=== PATIENT | female | born 1935 | race Caucasian/White ===

== ENCOUNTER 2018-09-03 02:48 | Observation (INO) | payer MEDICARE, BC ==
[~2018-09-03] VITALS: Ht 160 cm; Wt 46.8 kg
[2018-09-03 03:19] LABS: BASOPHILS 0.4 % (0-2); HEMATOCRIT 39.4 % (36.0-48.0); HEMOGLOBIN 12.9 g/dL (12-16); IMMATURE GRANULOCYTES 0.2 % (0-5); LYMPHOCYTES 35.7 % (15-50); MCH 31.9 pg (26.0-34.0); MCHC 32.7 g/dL (31.0-37.0); MCV 97.5 fL (80.0-100.0); MEAN PLATELET VOLUME 10.7 fL (7.4-10.4); MONOCYTES 10.2 % (2-11); NEUTROPHILS 50.5 % (40-80); PLATELET COUNT 166 10x3/uL (130-400); RBC 4.04 10x6/uL (4.00-5.40); RDW 13.2 % (11.5-14.5)
[2018-09-03 03:25] LABS: INR 1.05 (0.85-1.17); PROTIME 13.2 SECONDS (11.6-15.0)
[2018-09-03 03:32] LABS: ALBUMIN 3.8 g/dL (3.4-5.0); ALKALINE PHOSPHATASE 87 U/L (46-116); ALT (SGPT) 17 U/L (10-68); BILIRUBIN - TOTAL 0.68 mg/dL (0.2-1.3); CALC OSMOLALITY 274 mosm/kg (275-300); CALCIUM 8.8 mg/dL (8.5-10.1); CHLORIDE - SERUM 98 mmol/L (98-107); CREATININE - SERUM 0.7 mg/dL (0.6-1.3); GLUCOSE 105 mg/dL (74-106); POTASSIUM - SERUM 3.5 mmol/L (3.5-5.1); PROTEIN - SERUM 7.1 g/dL (6.4-8.2); SODIUM 137 mmol/L (136-145); UREA NITROGEN 14 mg/dL (7-18); eGFR NON AFRICAN AMERICAN 84 mL/min (90-120)
[2018-09-03 06:29] VITALS: BP 122/72; Ht 160 cm; Wt 46.8 kg
[2018-09-03 08:38] VITALS: BP 180/79
[2018-09-03] MEDS ORDERED: ZOCOR40 MG PO (09:43)
[2018-09-03] MEDS ORDERED: PROBIOTIC BLEN1 EACH PO (09:43)
[2018-09-03] MEDS ORDERED: SYNTHROID75 MCG PO (09:45)
[2018-09-03] MEDS ORDERED: CRANBERRY PO (09:45)
[2018-09-03] MEDS ORDERED: PLAVIX75 MG PO (09:46)
[2018-09-03] MEDS ORDERED: ZYRTEC10 MG PO (09:46)
[2018-09-03] MEDS ORDERED: BISOPROLOL-HCT1 EAC1 (09:48)
[2018-09-03 10:39] LABS: BASOPHILS 0.1 % (0-2); EOSINOPHILS 0.5 % (0-7); HEMATOCRIT 38.6 % (36.0-48.0); HEMOGLOBIN 12.6 g/dL (12-16); IMMATURE GRANULOCYTES 0.1 % (0-5); LYMPHOCYTES 13.1 % (15-50); MCH 31.7 pg (26.0-34.0); MCHC 32.6 g/dL (31.0-37.0); MCV 97.2 fL (80.0-100.0); MEAN PLATELET VOLUME 10.5 fL (7.4-10.4); MONOCYTES 6.7 % (2-11); NEUTROPHILS 79.5 % (40-80); PLATELET COUNT 183 10x3/uL (130-400); RBC 3.97 10x6/uL (4.00-5.40); RDW 13.2 % (11.5-14.5)
[2018-09-03 10:52] LABS: ANION GAP 14.2 mmol/L (8-16); CALCIUM 8.7 mg/dL (8.5-10.1); CARBON DIOXIDE 28.4 mmol/L (21.0-32.0); POTASSIUM - SERUM 3.6 mmol/L (3.5-5.1)
[2018-09-03 10:55] LABS: CREATININE - SERUM 0.9 mg/dL (0.6-1.3)
[2018-09-03 13:04] VITALS: BP 127/55
--- NOTE | 2018-09-03 15:47 | MORECARE ---
CASE MANAGEMENT DISCHARGE SUMMARY PATIENT: JAMES SPENCER UNIT: [id number] ADM DATE: 09/03/18 AGE: 83 : 34 SEX: F ROOM/BED: D.2229 AUTHOR: KAREN BENTLEY PHYSICIAN: REFERRING PHYSICIAN: CYRUS FERREIRA MD DATE OF SERVICE: 09/03/18 Discharge Plan Patient Name: JAMES SPENCER Facility: [facility]:[place] : 1935 Planned Disposition: Home or Self Care Anticipated Discharge Date: Discharge Date: Expected LOS: Initial Reviewer: [email or web address] Initial Review Date: 09/03/2018 Generated: 09/03/18 4:47 pm Patient Name: JAMES SPENCER Page 40883 at 1547 All edits/amendments must be made on the electronic document DICTATION DATE: 09/03/18 154 MANAGER TERMINAL: SAVANNAH 09/03/18 1547 RPT#: [id number] DC DATE: STATUS: ADM IN [facility] [address] [place] [address] END OF REPORT
--- NOTE | 2018-09-03 15:54 | MORECARE ---
CASE MANAGEMENT DISCHARGE SUMMARY PATIENT: JAMES SPENCER UNIT: [id number] ADM DATE: 09/03/18 AGE: 83 : 34 SEX: F ROOM/BED: D.2229 AUTHOR: KAREN BENTLEY PHYSICIAN: REFERRING PHYSICIAN: CYRUS FERREIRA MD DATE OF SERVICE: 09/03/18 Discharge Plan Patient Name: JAMES SPENCER Facility: [facility]:[place] : 1935 Planned Disposition: Home or Self Care Anticipated Discharge Date: Discharge Date: Expected LOS: Initial Reviewer: [email or web address] Initial Review Date: 09/03/2018 Generated: 09/03/18 4:54 pm Comments DCP- Discharge Planning Updated by [email or web address]: Ashly Avila on 09/03/18 2:[address] Patient Name: JAMES SPENCER Admission Status: ER Accout number: [id number] Admission Date: 09-03-2018 : 1935 Admission Diagnosis: Attending: CYRUS FERREIRA Current LOS: 1 Anticipated DC Date: Planned Disposition: Home or Self Care Primary Insurance: MEDICARE A & B Discharge Planning Comments: CM met with patient to complete initial dc planning assessment. CM educated patient on the CM role and verbal consent given by patient to complete assessment. Patient lives at home where she states she is independent with her care. Her son Rene states that she does everything for her self, but she has vascular dementia. She has a cane, but does not use any other DME. She does have a life alert. Her son lives 3 blocks away and is there multiple times a day checking on her. His is also a RN. At discharge patient plans to return home and feels this is a safe discharge. Her son and I talked about assisted living, but the patient is not hearing at this time. CM discussed availability of home health, rehab services, and medical equipment. Patient denied known discharge needs at this time. CM will continue to follow and will assist as needed with dc plans/needs. Senior Network Engineer: Ashly Avila DCPIA - Discharge Planning Initial Assessment Updated by [email or web address]: Ashly Avila on 09/03/18 3:48 pm * Is the patient Alert and Oriented? Yes * How many steps to enter\exit or inside your home? * PCP [facility] * [facility] * Preadmission Environment Home Alone * ADLs Independent * Equipment Cane * Other Equipment Life alert * List name and contact numbers for known caregivers / representatives who currently or will assist patient after discharge: Rene (son) [phone] * Verbal permission to speak to the caregivers and representatives has been obtained from the patient. Yes * Community resources currently utilized None * Additional services required to return to the preadmission environment? No * Can the patient safely return to the preadmission environment? Yes * Has this patient been hospitalized within the prior 30 days at any hospital? No Last DP export: 09/03/18 2:47 p Patient Name: JAMES SPENCER Page [id number] at 1554 All edits/amendments must be made on the electronic document DICTATION DATE: 09/03/181553 ULTRASOUND MANAGER: SAVANNAH 09/03/181553 RPT#: [id number] DC DATE: STATUS: ADM IN [facility] [address] [place] [address] END OF REPORT
[2018-09-03 16:22] LABS: APPEARANCE CLEAR (CLEAR); COLOR YELLOW (YELLOW); NITRITE NEGATIVE (NEGATIVE); PROTEIN NEGATIVE (NEGATIVE)
[2018-09-03 16:24] LABS: BILIRUBIN NEGATIVE (NEGATIVE); GLUCOSE NEGATIVE (NEGATIVE); KETONE NEGATIVE (NEGATIVE); UROBILINOGEN NORMAL (NORMAL)
--- NOTE | 2018-09-05 16:08 | MORECARE ---
CASE MANAGEMENT DISCHARGE SUMMARY PATIENT: JAMES SPENCER UNIT: [id number] ADM DATE: 09/03/18 AGE: 83 : 34 SEX: F ROOM/BED: D.2229 AUTHOR: KAREN BENTLEY PHYSICIAN: REFERRING PHYSICIAN: CYRUS FERREIRA MD DATE OF SERVICE: 09/05/18 Discharge Plan Patient Name: JAMES SPENECR Facility: [facility]:[place] : 1935 Planned Disposition: Home or Self Care Anticipated Discharge Date: Discharge Date: 09/03/2018 Expected LOS: 0 Initial Reviewer: [email or web address] Initial Review Date: 09/03/2018 Generated: 09/05/18 5:08 pm Comments DCP- Discharge Planning Updated by [email or web address]: Ashly Avila on 09/03/18 2:[address] Patient Name: JAMES SPENCER Admission Status: ER Accout number: [id number] Admission Date: 09-03-2018 : 1935 Admission Diagnosis: Attending: CYRUS FERREIRA Current LOS: 1 Anticipated DC Date: Planned Disposition: Home or Self Care Primary Insurance: MEDICARE A & B Discharge Planning Comments: CM met with patient to complete initial dc planning assessment. CM educated patient on the CM role and verbal consent given by patient to complete assessment. Patient lives at home where she states she is independent with her care. Her son Rene states that she does everything for her self, but she has vascular dementia. She has a cane, but does not use any other DME. She does have a life alert. Her son lives 3 blocks away and is there multiple times a day checking on her. His is also a RN. At discharge patient plans to return home and feels this is a safe discharge. Her son and I talked about assisted living, but the patient is not hearing at this time. CM discussed availability of home health, rehab services, and medical equipment. Patient denied known discharge needs at this time. CM will continue to follow and will assist as needed with dc plans/needs. Truck And Transport Mechanic: Ashly Avila DCPIA - Discharge Planning Initial Assessment Updated by [email or web address]: Ahsly Avila on 09/03/18 3:48 pm * Is the patient Alert and Oriented? Yes * How many steps to enter\exit or inside your home? * PCP Amairani Norton * Pharmacy [facility] * Preadmission Environment Home Alone * ADLs Independent * Equipment Cane * Other Equipment Life alert * List name and contact numbers for known caregivers / representatives who currently or will assist patient after discharge: Rene (son) [phone] * Verbal permission to speak to the caregivers and representatives has been obtained from the patient. Yes * Community resources currently utilized None * Additional services required to return to the preadmission environment? No * Can the patient safely return to the preadmission environment? Yes * Has this patient been hospitalized within the prior 30 days at any hospital? No Last DP export: 09/03/18 2:54 p Patient Name: JAMES SPENCER Page 44202 at 1608 All edits/amendments must be made on the electronic document DICTATION DATE: 09/05/181606 SOUND ENGINEER: SAVANNAH 09/05/181606 RPT#: [id number] DC DATE:09/03/18 STATUS: DIS IN [facility] [address] [place] [address] END OF REPORT
== END 2018-09-03 18:12 | disposition home or self-care (01) ==
LOC: D.ER 02:48 → D.MS 04:14 → OBSVTIME 04:14 → D.MS 04:14
PROVIDERS: Family Medicine; ADMIT Internal Medicine Nephrology
DX: S00.03XA Contusion of scalp, initial encounter (principal); S60.222A Contusion of left hand, initial encounter; W19.XXXA Unspecified fall, initial encounter; F03.90 Unspecified dementia, unspecified severity, without behavioral disturbance, psychotic disturbance, mood disturbance, and anxiety